=== PATIENT | female | born 1950 | race Caucasian/White ===

== ENCOUNTER 2016-12-26 19:31 | Emergency (ER) | payer MEDICAID ==
[~2016-12-26] VITALS: Ht 167.6 cm; Wt 55.0 kg
[~2016-12-26 19:31] MED LIST: FLUO40CA9 PO; ONDA4TAB10 PO; PANT40TA3 PO
[2016-12-26] MEDS ORDERED: MORPHINE SULFATE 4 MG/ML, 1ML ONE ×2 (20:10→20:30)
[2016-12-26] MEDS ORDERED: ONDANSETRON 2MG/ML, 2ML ONE (20:10)
[2016-12-26] MEDS: MORPHINE SULFATE 4 MG/ML, 1ML IVPush PRN ×2 (20:23→20:42)
[2016-12-26] MEDS ORDERED: DIPHENHYDRAMINE 50 MG/ML, 1ML ONE (20:30)
[2016-12-26] MEDS ORDERED: SODIUM CHLORIDE 0.9% 1,000ML IVBOLUS ONE (20:30)
[2016-12-26] MEDS ORDERED: ONDANSETRON 2MG/ML, 2ML IVPush ONE (20:30)
[2016-12-26 20:37] LABS: HEMOGLOBIN 11.5 g/dL (11.7-16.4)
[2016-12-26 20:41] LABS: ASPARTATE AMINO TRANSFERASE 10 U/L (15-37); BLOOD UREA NITROGEN 10 mg/dL (7-18)
[2016-12-26 20:46] LABS: IS PT STATUS REG ER OR PRE ER? YES
[2016-12-26 21:42] VITALS: BP 140/82
== END 2016-12-26 21:44 | disposition home or self-care (01) ==
LOC: ED 20:23
DX: K44.9 Diaphragmatic hernia without obstruction or gangrene (principal); E11.9 Type 2 diabetes mellitus without complications; K21.9 Gastro-esophageal reflux disease without esophagitis; I25.2 Old myocardial infarction
CPT/HCPCS: 36415; 71010; 80053; 83690; 84484; 85025; 93005; 96361; 96374; 96375; 99285; J2405; J7030

== ENCOUNTER 2017-01-26 09:47 | Inpatient (IN) | payer MEDICAID ==
[2017-01-18 13:42] VITALS: BP 136/88
[~2017-01-26] VITALS: Ht 167.6 cm; Wt 68.3 kg
[~2017-01-26 09:47] MED LIST changes: +ACET1TAB10 PO; +B-12 SL; +CEFAZOLIN 1,000 MG ONE; +DEXAMETHASONE 4 MG/ML, 1ML ONE; +EPHEDRINE 50 MG/ML, 1ML ONE; +ESMOLOL 100 MG/10 ML ONE; +FISH OIL PO; +GLYCOPYRROLATE 0.2MG/1ML ONE; +HYDROCODONE PO; +KETOROLAC 30 MG/1 ML ONE; +NEOSTIGMINE 1 MG/ML, 10ML ONE; +ONDANSETRON 2MG/ML, 2ML ONE; +OXYC10TA6 PO; +PHENYLEPHRINE 10 MG/ML ONE; +POTASSIUM PO; +PROPOFOL 10 MG/ML, 20ML ONE; +ROCURONIUM 10 MG/ML ONE; +SUCCINYLCHOLINE 20 MG/ML, 10ML ONE
[2017-01-26] MEDS ORDERED: PROM25SU34 RC (10:14)
[2017-01-26] MEDS ORDERED: SUCR1ORA2 PO (10:14)
[2017-01-26] MEDS ORDERED: LIDOCAINE 1%, 2ML SQ PRN (10:30)
[2017-01-26] MEDS ORDERED: BUPIVACAINE/PF-EPI 0.25% 1:200K ONE ×2 (10:50→11:32)
[2017-01-26] MEDS ORDERED: ONDANSETRON 2MG/ML, 2ML ONE (11:01)
[2017-01-26] MEDS: LACTATED RINGERS 1,000 ML IV SCH ×2 (11:03→18:00)
[2017-01-26] MEDS ORDERED: OXYC10TA6 PO (11:13)
[2017-01-26] MEDS ORDERED: ONDANSETRON 2MG/ML, 2ML IVPush ONE (11:30)
[2017-01-26] MEDS ORDERED: ACETAMINOPHEN 500 MG TABLET PO ONE (11:30)
[2017-01-26] MEDS ORDERED: HYDROmorphone 2 MG/ML, 1ML ONE ×2 (11:52→15:25)
[2017-01-26] MEDS ORDERED: FENTANYL PF 250 MCG/5ML ONE (11:52)
[2017-01-26] MEDS ORDERED: KETAMINE 10 MG/ML, 20ML ONE (11:52)
[2017-01-26] MEDS ORDERED: MIDAZOLAM 1 MG/ML, 2ML ONE (11:52)
[2017-01-26] MEDS ORDERED: THROMBIN 5,000 UNIT VIAL TP ONE (12:59)
[2017-01-26] MEDS ORDERED: LABETALOL 5MG/ML, 20ML IV PRN (13:00)
[2017-01-26] MEDS ORDERED: MEPERIDINE/PF 25MG/0.5ML IVPush PRN (13:00)
[2017-01-26] MEDS ORDERED: METOCLOPRAMIDE 5 MG/ML, 2ML IV PRN (13:00)
[2017-01-26] MEDS ORDERED: ACETAMINOPHEN 325 MG TABLET PO PRN (13:00)
[2017-01-26] MEDS ORDERED: HYDROmorphone 1 MG/ML, 1ML IV PRN (13:00)
[2017-01-26] MEDS ORDERED: hydrALAzine 20 MG/ML, 1ML IV PRN (13:00)
[2017-01-26] MEDS ORDERED: ONDANSETRON 2MG/ML, 2ML IVPush PRN (13:00)
[2017-01-26] MEDS ORDERED: MIDAZOLAM 1 MG/ML, 2ML IV PRN (13:00)
[2017-01-26] MEDS ORDERED: OXYcodone 5 MG/5 ML ORAL.SOL UDC PO PRN (13:00)
[2017-01-26] MEDS ORDERED: PROMETHAZINE 25 MG/ML, 1ML IV PRN (13:00)
[2017-01-26] MEDS ORDERED: ACETAMINOPHEN 650 MG/20.3 ML UDC ONE (15:25)
[2017-01-26] MEDS ORDERED: ACETAMINOPHEN 325 MG TABLET ONE (15:25)
[2017-01-26] MEDS ORDERED: FENTANYL PF 100 MCG/2ML ONE (15:25)
[2017-01-26] MEDS ORDERED: OXYcodone 5 MG/5 ML ORAL.SOL UDC ONE (15:26)
[2017-01-26] MEDS: FENTANYL PF 100 MCG/2ML IV PRN ×3 (15:31→15:57)
[2017-01-26] MEDS: INSULIN ASPART 100 UNITS/ML, PEN SQ-INSULIN SCH ×2 (16:00→21:24)
[2017-01-26] MEDS: HYDROcodone/APAP 7.5-325MG/15ML UDC PO PRN ×2 (17:29→21:59)
[2017-01-26] MEDS: HYDROmorphone 1 MG/ML, 1ML IV PRN ×6 (17:55→23:16)
[2017-01-26] MEDS: LABETALOL 5MG/ML, 20ML IVPush SCH (18:00)
[2017-01-26] MEDS: KETOROLAC 30 MG/1 ML IV PRN (19:31)
[2017-01-26 20:04] VITALS: BP 119/72
[2017-01-26] MEDS: ONDANSETRON 2MG/ML, 2ML IVPush PRN (20:21)
[2017-01-26] MEDS: POTASSIUM CHLORIDE 20 MEQ in D5%-0.45% NACL 1,000 ML IV SCH (20:47)
[2017-01-27 00:07] VITALS: BP 106/68
[2017-01-27] MEDS: LABETALOL 5MG/ML, 20ML IVPush SCH ×3 (00:51→18:00)
[2017-01-27] MEDS: HYDROmorphone 1 MG/ML, 1ML IV PRN ×13 (01:14→19:58)
[2017-01-27] MEDS: HYDROcodone/APAP 7.5-325MG/15ML UDC PO PRN ×3 (02:15→09:44)
[2017-01-27 04:27] VITALS: BP 101/63
[2017-01-27] MEDS: KETOROLAC 30 MG/1 ML IV PRN ×3 (04:43→20:19)
[2017-01-27 06:33] LABS: BLOOD UREA NITROGEN 13 mg/dL (7-18)
[2017-01-27 08:00] VITALS: BP 93/59
[2017-01-27] MEDS: ENOXAPARIN 40 MG/0.4 ML SQ SCH (08:19)
[2017-01-27] MEDS: POTASSIUM CHLORIDE 20 MEQ in D5%-0.45% NACL 1,000 ML IV SCH ×2 (09:44→23:02)
[2017-01-27] MEDS: ONDANSETRON 2MG/ML, 2ML IVPush PRN (11:05)
[2017-01-27] MEDS ORDERED: OMNIPAQUE 350 MG/ML, 150 ML BOTTLE ONE (11:50)
[2017-01-27] MEDS: INSULIN ASPART 100 UNITS/ML, PEN SQ-INSULIN SCH ×2 (11:55→21:59)
[2017-01-27 14:00] VITALS: BP 88/49
[2017-01-27] MEDS ORDERED: SODIUM CHLORIDE 0.9%, 500ML IVBOLUS ONE (15:30)
[2017-01-27] MEDS ORDERED: BUPIVACAINE/PF-EPI 0.25% 1:200K ONE (16:32)
[2017-01-27] MEDS ORDERED: SUCCINYLCHOLINE 20 MG/ML, 10ML ONE (17:27)
[2017-01-27] MEDS ORDERED: CEFAZOLIN 1,000 MG ONE (17:27)
[2017-01-27] MEDS ORDERED: PHENYLEPHRINE 10 MG/ML ONE (17:27)
[2017-01-27] MEDS ORDERED: VASOPRESSIN 20 UNIT/ML, 1ML ONE (17:27)
[2017-01-27] MEDS ORDERED: NEOSTIGMINE 1 MG/ML, 10ML ONE (17:27)
[2017-01-27] MEDS ORDERED: GLYCOPYRROLATE 0.2MG/1ML ONE (17:27)
[2017-01-27] MEDS ORDERED: ONDANSETRON 2MG/ML, 2ML ONE (17:27)
[2017-01-27] MEDS ORDERED: PROPOFOL 10 MG/ML, 20ML ONE ×2 (17:27)
[2017-01-27] MEDS ORDERED: ROCURONIUM 10 MG/ML ONE (17:27)
[2017-01-27] MEDS ORDERED: FENTANYL PF 250 MCG/5ML ONE (17:29)
[2017-01-27] MEDS ORDERED: MIDAZOLAM 1 MG/ML, 2ML ONE (17:29)
[2017-01-27] MEDS ORDERED: OXYcodone 5 MG/5 ML ORAL.SOL UDC PO PRN (19:00)
[2017-01-27] MEDS ORDERED: HYDROcodone/APAP 7.5-325MG/15ML UDC PO PRN (19:00)
[2017-01-27] MEDS ORDERED: PROMETHAZINE 25 MG/ML, 1ML IV PRN (19:00)
[2017-01-27] MEDS ORDERED: MEPERIDINE/PF 25MG/0.5ML IVPush PRN (19:00)
[2017-01-27] MEDS ORDERED: ONDANSETRON 2MG/ML, 2ML IVPush PRN (19:00)
[2017-01-27] MEDS ORDERED: MIDAZOLAM 1 MG/ML, 2ML IV PRN (19:00)
[2017-01-27] MEDS ORDERED: ACETAMINOPHEN 325 MG TABLET PO PRN (19:00)
[2017-01-27] MEDS ORDERED: FENTANYL PF 100 MCG/2ML ONE ×2 (19:22→19:37)
[2017-01-27] MEDS ORDERED: HYDROmorphone 2 MG/ML, 1ML ONE (19:22)
[2017-01-27] MEDS ORDERED: OXYcodone 5 MG/5 ML ORAL.SOL UDC ONE (19:23)
[2017-01-27] MEDS: FENTANYL PF 100 MCG/2ML IV PRN ×4 (19:25→19:50)
[2017-01-27] MEDS ORDERED: HYDROmorphone PCA 30 MG/30 ML IV PRN (19:30)
[2017-01-27] MEDS ORDERED: MEPERIDINE/PF 25MG/0.5ML ONE (19:37)
[2017-01-27] MEDS ORDERED: HYDROmorphone PCA 30 MG/30 ML ONE (19:37)
[2017-01-27] MEDS ORDERED: KETOROLAC 30 MG/1 ML ONE (20:18)
[2017-01-27 21:12] VITALS: BP 92/64
[2017-01-27] MEDS: CEFOTETAN PMX 1GM/50ML 50 ML IV SCH (21:35)
[2017-01-27] MEDS: FLUCONAZOLE 200 MG/100 ML 100 ML IV SCH ×2 (21:35→23:03)
[2017-01-27] MEDS: DIPHENHYDRAMINE 50 MG/ML, 1ML IV PRN ×2 (21:50→23:18)
[2017-01-28 00:24] VITALS: BP 97/64
[2017-01-28] MEDS: LABETALOL 5MG/ML, 20ML IVPush SCH ×3 (02:00→17:41)
[2017-01-28 03:56] VITALS: BP 98/65
[2017-01-28] MEDS: INSULIN ASPART 100 UNITS/ML, PEN SQ-INSULIN SCH ×4 (04:00→22:11)
[2017-01-28 05:10] LABS: BLOOD UREA NITROGEN 17 mg/dL (7-18)
[2017-01-28 05:22] LABS: DIFF TOTAL CELLS COUNTED 100 CELL DIFF
[2017-01-28 05:24] LABS: ANISOCYTOSIS 1+; HYPOCHROMIA 1+; OVALOCYTES 1+; TARGET CELLS 1+; VERIFY COUNTS? YES
[2017-01-28 05:26] LABS: LARGE PLATELETS 1+
[2017-01-28] MEDS ORDERED: SODIUM CHLORIDE 0.9%, 250ML IVBOLUS ONE (07:00)
[2017-01-28] MEDS: KETOROLAC 30 MG/1 ML IV PRN ×3 (08:05→20:26)
[2017-01-28] MEDS: CEFOTETAN PMX 1GM/50ML 50 ML IV SCH ×2 (08:05→19:57)
[2017-01-28] MEDS: HYDROmorphone 1 MG/ML, 1ML IV PRN (08:56)
[2017-01-28] MEDS ORDERED: HYDROmorphone PCA 30 MG/30 ML IV PRN (09:00)
[2017-01-28 09:55] VITALS: BP 96/51
[2017-01-28] MEDS: ENOXAPARIN 40 MG/0.4 ML SQ SCH (10:19)
[2017-01-28] MEDS: POTASSIUM CHLORIDE 20 MEQ in D5%-0.45% NACL 1,000 ML IV SCH ×2 (10:19→18:30)
[2017-01-28 15:55] VITALS: BP 102/64
[2017-01-28] MEDS ORDERED: LACTATED RINGERS 500 ML IVBOLUS ONE (18:00)
[2017-01-28 18:34] VITALS: BP 118/71
[2017-01-28] MEDS: ONDANSETRON 2MG/ML, 2ML IVPush PRN (19:56)
[2017-01-28] MEDS: DIPHENHYDRAMINE 50 MG/ML, 1ML IV PRN ×2 (20:30→22:11)
[2017-01-28] MEDS: HYDROmorphone PCA 30 MG/30 ML IV PRN (21:26)
[2017-01-28] MEDS: FLUCONAZOLE 200 MG/100 ML 100 ML IV SCH (22:11)
[2017-01-29 01:08] VITALS: BP 117/71
[2017-01-29 02:19] LABS: ASPARTATE AMINO TRANSFERASE 27 U/L (15-37); BLOOD UREA NITROGEN 13 mg/dL (7-18)
[2017-01-29] MEDS: KETOROLAC 30 MG/1 ML IV PRN ×4 (02:37→22:33)
[2017-01-29] MEDS: LABETALOL 20 MG/4 ML IVPush SCH ×3 (02:38→17:03)
[2017-01-29 03:05] LABS: DIFF TOTAL CELLS COUNTED 100 CELL DIFF
[2017-01-29 03:08] LABS: ANISOCYTOSIS 1+; VERIFY COUNTS? YES
[2017-01-29 03:09] LABS: HYPOCHROMIA 1+; OVALOCYTES 1+; POLYCHROMASIA 1+; TARGET CELLS 1+
[2017-01-29 03:10] LABS: LARGE PLATELETS 1+
[2017-01-29] MEDS: INSULIN ASPART 100 UNITS/ML, PEN SQ-INSULIN SCH ×4 (04:55→22:00)
[2017-01-29] MEDS: POTASSIUM CHLORIDE 20 MEQ in D5%-0.45% NACL 1,000 ML IV SCH ×3 (04:56→19:10)
[2017-01-29] MEDS ORDERED: LACTATED RINGERS 1,000 ML IVBOLUS ONE (05:00)
[2017-01-29 06:36] VITALS: BP 95/61
[2017-01-29] MEDS: CEFOTETAN PMX 1GM/50ML 50 ML IV SCH ×2 (07:20→19:36)
[2017-01-29] MEDS: ENOXAPARIN 40 MG/0.4 ML SQ SCH (08:56)
[2017-01-29] MEDS: ONDANSETRON 2MG/ML, 2ML IVPush PRN ×2 (09:42→23:44)
[2017-01-29] MEDS: DIPHENHYDRAMINE 50 MG/ML, 1ML IV PRN ×3 (11:01→20:18)
[2017-01-29 11:05] VITALS: BP 97/62
[2017-01-29 14:00] VITALS: BP 107/65
[2017-01-29] MEDS: NICOTINE 14MG/24 HR PATCH.TD24 TD SCH (15:17)
[2017-01-29] MEDS ORDERED: LACTATED RINGERS 500 ML IVBOLUS ONE (17:00)
[2017-01-29 18:41] VITALS: BP 102/68
[2017-01-29] MEDS: FLUCONAZOLE 200 MG/100 ML 100 ML IV SCH (21:54)
[2017-01-29] MEDS: HYDROmorphone PCA 30 MG/30 ML IV PRN (21:56)
[2017-01-30 01:45] VITALS: BP 90/55
[2017-01-30] MEDS: LABETALOL 20 MG/4 ML IVPush SCH ×3 (02:30→18:28)
[2017-01-30] MEDS: POTASSIUM CHLORIDE 20 MEQ in D5%-0.45% NACL 1,000 ML IV SCH ×3 (03:15→20:32)
[2017-01-30] MEDS: INSULIN ASPART 100 UNITS/ML, PEN SQ-INSULIN SCH ×4 (04:00→21:48)
[2017-01-30 06:35] LABS: BLOOD UREA NITROGEN 8 mg/dL (7-18)
[2017-01-30 07:38] VITALS: BP 116/70
[2017-01-30] MEDS: ENOXAPARIN 40 MG/0.4 ML SQ SCH (08:27)
[2017-01-30] MEDS: CEFOTETAN PMX 1GM/50ML 50 ML IV SCH ×2 (08:28→19:41)
[2017-01-30] MEDS: KETOROLAC 30 MG/1 ML IV PRN (10:13)
[2017-01-30] MEDS: ONDANSETRON 2MG/ML, 2ML IVPush PRN (10:13)
[2017-01-30 11:59] VITALS: BP 96/61
[2017-01-30] MEDS: DIPHENHYDRAMINE 50 MG/ML, 1ML IV PRN ×2 (12:01→22:03)
[2017-01-30 12:36] VITALS: BP 100/64
[2017-01-30] MEDS: NICOTINE 14MG/24 HR PATCH.TD24 TD SCH (16:12)
[2017-01-30] MEDS ORDERED: LACTATED RINGERS 500 ML IVBOLUS ONE (16:30)
[2017-01-30 18:29] VITALS: BP 95/62
[2017-01-30 21:27] VITALS: BP 113/69
[2017-01-30] MEDS: FLUCONAZOLE 200 MG/100 ML 100 ML IV SCH (22:03)
[2017-01-31] MEDS: HYDROmorphone PCA 30 MG/30 ML IV PRN (01:36)
[2017-01-31] MEDS: ONDANSETRON 2MG/ML, 2ML IVPush PRN ×2 (01:40→10:06)
[2017-01-31 02:30] VITALS: BP 96/62
[2017-01-31] MEDS: LABETALOL 20 MG/4 ML IVPush SCH ×3 (02:30→11:11)
[2017-01-31] MEDS: INSULIN ASPART 100 UNITS/ML, PEN SQ-INSULIN SCH ×4 (04:00→20:58)
[2017-01-31] MEDS: POTASSIUM CHLORIDE 20 MEQ in D5%-0.45% NACL 1,000 ML IV SCH ×3 (04:01→23:31)
[2017-01-31 06:55] VITALS: BP 90/63
[2017-01-31 06:59] LABS: DIFF TOTAL CELLS COUNTED 100 CELL DIFF
[2017-01-31 07:01] LABS: ANISOCYTOSIS 1+; VERIFY COUNTS? YES
[2017-01-31 07:02] LABS: POLYCHROMASIA 1+
[2017-01-31] MEDS: DIPHENHYDRAMINE 50 MG/ML, 1ML IV PRN ×3 (07:46→20:55)
[2017-01-31] MEDS: ENOXAPARIN 40 MG/0.4 ML SQ SCH (09:09)
[2017-01-31] MEDS: CEFOTETAN PMX 1GM/50ML 50 ML IV SCH ×2 (09:10→19:49)
[2017-01-31] MEDS ORDERED: HYDROcodone/APAP 7.5-325MG/15ML UDC PO PRN ×2 (10:30→13:00)
[2017-01-31] MEDS: HYDROcodone/APAP 7.5-325MG/15ML UDC PO PRN (11:52)
[2017-01-31 14:15] VITALS: BP 98/62
[2017-01-31] MEDS: NICOTINE 14MG/24 HR PATCH.TD24 TD SCH (15:06)
[2017-01-31 19:55] VITALS: BP 130/78
[2017-01-31] MEDS: FLUCONAZOLE 200 MG/100 ML 100 ML IV SCH (21:50)
[2017-02-01 01:29] VITALS: BP 105/69
[2017-02-01] MEDS: LABETALOL 20 MG/4 ML IVPush SCH (01:37)
[2017-02-01] MEDS: ONDANSETRON 2MG/ML, 2ML IVPush PRN ×2 (02:11→13:16)
[2017-02-01] MEDS: INSULIN ASPART 100 UNITS/ML, PEN SQ-INSULIN SCH ×4 (04:00→22:03)
[2017-02-01] MEDS: DIPHENHYDRAMINE 50 MG/ML, 1ML IV PRN ×3 (05:04→20:15)
[2017-02-01 05:42] LABS: BLOOD UREA NITROGEN 6 mg/dL (7-18)
[2017-02-01] MEDS ORDERED: LABETALOL 5MG/ML, 20ML IVPush SCH ×2 (06:00→06:58)
[2017-02-01 06:34] LABS: DIFF TOTAL CELLS COUNTED 100 CELL DIFF
[2017-02-01 06:36] LABS: ANISOCYTOSIS 1+; OVALOCYTES 1+; POIKILOCYTOSIS 1+; POLYCHROMASIA 1+
[2017-02-01 06:37] LABS: LARGE PLATELETS 1+; TARGET CELLS 1+
[2017-02-01 06:39] LABS: HYPOCHROMIA 1+; VERIFY COUNTS? YES
[2017-02-01 07:21] VITALS: BP 121/80
[2017-02-01] MEDS: HYDROmorphone PCA 30 MG/30 ML IV PRN ×2 (07:47→08:02)
[2017-02-01] MEDS ORDERED: ACETAMINOPHEN 500 MG TABLET PO PRN (08:00)
[2017-02-01] MEDS: CEFOTETAN PMX 1GM/50ML 50 ML IV SCH ×2 (08:20→20:15)
[2017-02-01] MEDS: OXYcodone IR 5MG TABLET PO PRN ×5 (08:40→22:26)
[2017-02-01] MEDS ORDERED: LABETALOL 20 MG/4 ML IVPush PRN (09:30)
[2017-02-01] MEDS: ENOXAPARIN 40 MG/0.4 ML SQ SCH (09:48)
[2017-02-01] MEDS: NICOTINE 14MG/24 HR PATCH.TD24 TD SCH (13:14)
[2017-02-01 15:03] VITALS: BP 125/75
[2017-02-01] MEDS ORDERED: POTASSIUM CHLORIDE 20 MEQ in D5%-0.45% NACL 1,000 ML IV SCH (15:15)
[2017-02-01 19:38] VITALS: BP 115/78
[2017-02-01] MEDS: FLUCONAZOLE 200 MG/100 ML 100 ML IV SCH (22:29)
[2017-02-02 01:33] VITALS: BP 112/70
[2017-02-02] MEDS: OXYcodone IR 5MG TABLET PO PRN ×2 (02:54→08:25)
[2017-02-02] MEDS: INSULIN ASPART 100 UNITS/ML, PEN SQ-INSULIN SCH ×4 (04:47→21:00)
[2017-02-02] MEDS: DIPHENHYDRAMINE 50 MG/ML, 1ML IV PRN (05:50)
[2017-02-02 06:31] VITALS: BP 103/65
[2017-02-02] MEDS ORDERED: HYDROmorphone PCA 30 MG/30 ML IV PRN (08:00)
[2017-02-02] MEDS: ENOXAPARIN 40 MG/0.4 ML SQ SCH (08:25)
[2017-02-02] MEDS: CEFOTETAN PMX 1GM/50ML 50 ML IV SCH ×2 (08:25→21:40)
[2017-02-02] MEDS ORDERED: FENTANYL PF 250 MCG/5ML ONE (12:36)
[2017-02-02] MEDS ORDERED: MIDAZOLAM 1 MG/ML, 2ML ONE (12:37)
[2017-02-02] MEDS ORDERED: BUPIVACAINE/PF-EPI 0.25% 1:200K ONE (12:47)
[2017-02-02] MEDS ORDERED: BUPIVACAINE/PF-EPI 0.25% 1:200K INFIL ONE (13:00)
[2017-02-02] MEDS ORDERED: METOCLOPRAMIDE 5 MG/ML, 2ML IV PRN (13:30)
[2017-02-02] MEDS ORDERED: OXYcodone 5 MG/5 ML ORAL.SOL UDC PO PRN (13:30)
[2017-02-02] MEDS ORDERED: LABETALOL 5MG/ML, 20ML IV PRN (13:30)
[2017-02-02] MEDS ORDERED: HYDROmorphone 1 MG/ML, 1ML IV PRN (13:30)
[2017-02-02] MEDS ORDERED: hydrALAzine 20 MG/ML, 1ML IV PRN (13:30)
[2017-02-02] MEDS ORDERED: MEPERIDINE/PF 25MG/0.5ML IVPush PRN (13:30)
[2017-02-02] MEDS ORDERED: ALBUTEROL SULFATE 2.5 MG/3 ML NPPB PRN (13:30)
[2017-02-02] MEDS ORDERED: ONDANSETRON 2MG/ML, 2ML IVPush PRN (13:30)
[2017-02-02] MEDS ORDERED: ALBUTEROL SULFATE 2.5 MG/3 ML ONE (14:46)
[2017-02-02] MEDS ORDERED: FENTANYL PF 100 MCG/2ML ONE ×2 (15:24→16:00)
[2017-02-02] MEDS: FENTANYL PF 100 MCG/2ML IV PRN ×4 (15:25→16:20)
[2017-02-02] MEDS ORDERED: NEOSTIGMINE 1 MG/ML, 10ML ONE (15:27)
[2017-02-02] MEDS ORDERED: ONDANSETRON 2MG/ML, 2ML ONE (15:27)
[2017-02-02] MEDS ORDERED: PHENYLEPHRINE 10 MG/ML ONE (15:27)
[2017-02-02] MEDS ORDERED: GLYCOPYRROLATE 0.2MG/1ML ONE (15:27)
[2017-02-02] MEDS ORDERED: PROPOFOL 10 MG/ML, 20ML ONE (15:27)
[2017-02-02] MEDS ORDERED: ROCURONIUM 10 MG/ML ONE (15:27)
[2017-02-02] MEDS: HYDROmorphone PCA 30 MG/30 ML IV PRN (15:30)
[2017-02-02 19:15] VITALS: BP 122/81
[2017-02-02] MEDS: NICOTINE 14MG/24 HR PATCH.TD24 TD SCH (21:45)
[2017-02-02] MEDS: FLUCONAZOLE 200 MG/100 ML 100 ML IV SCH (22:31)
[2017-02-02] MEDS: POTASSIUM CHLORIDE 20 MEQ in D5%-0.45% NACL 1,000 ML IV SCH (22:31)
[2017-02-02 23:19] VITALS: BP 117/75
[2017-02-03 03:33] VITALS: BP 119/77
[2017-02-03] MEDS: POTASSIUM CHLORIDE 20 MEQ in D5%-0.45% NACL 1,000 ML IV SCH ×4 (03:35→22:25)
[2017-02-03] MEDS: ONDANSETRON 2MG/ML, 2ML IVPush PRN (04:50)
[2017-02-03] MEDS: HYDROmorphone PCA 30 MG/30 ML IV PRN (05:35)
[2017-02-03 06:55] VITALS: BP 123/80
[2017-02-03 07:40] LABS: BLOOD UREA NITROGEN 2 mg/dL (7-18)
[2017-02-03] MEDS: INSULIN ASPART 100 UNITS/ML, PEN SQ-INSULIN SCH ×4 (07:44→21:00)
[2017-02-03] MEDS: CEFOTETAN PMX 1GM/50ML 50 ML IV SCH ×2 (08:17→19:53)
[2017-02-03] MEDS: ENOXAPARIN 40 MG/0.4 ML SQ SCH (08:17)
[2017-02-03] MEDS: DIPHENHYDRAMINE 50 MG/ML, 1ML IV PRN ×2 (12:41→21:29)
[2017-02-03 13:01] VITALS: BP 118/78
[2017-02-03] MEDS ORDERED: HYDROmorphone PCA 30 MG/30 ML IV PRN (18:00)
[2017-02-03 18:44] VITALS: BP 156/94
[2017-02-03] MEDS ORDERED: OXYcodone 5 MG/5 ML ORAL.SOL UDC ONE (19:51)
[2017-02-03] MEDS: OXYcodone ORAL.CONC 20 MG/ML PO PRN (19:54)
[2017-02-03] MEDS: NICOTINE 14MG/24 HR PATCH.TD24 TD SCH (21:28)
[2017-02-03] MEDS: FLUCONAZOLE 200 MG/100 ML 100 ML IV SCH (21:28)
[2017-02-04] MEDS ORDERED: OXYcodone IR 5MG TABLET ONE (00:22)
[2017-02-04] MEDS: OXYcodone ORAL.CONC 20 MG/ML PO PRN ×6 (00:23→21:26)
[2017-02-04 00:36] VITALS: BP 143/92
[2017-02-04 05:21] LABS: BLOOD UREA NITROGEN 2 mg/dL (7-18)
[2017-02-04] MEDS: INSULIN ASPART 100 UNITS/ML, PEN SQ-INSULIN SCH ×4 (07:00→21:00)
[2017-02-04 07:15] VITALS: BP 137/82
[2017-02-04] MEDS ORDERED: MAGNESIUM HYDROXIDE 8%, 30ML UDC PO PRN (07:30)
[2017-02-04] MEDS: CEFOTETAN PMX 1GM/50ML 50 ML IV SCH ×2 (08:14→19:34)
[2017-02-04] MEDS: DOCUSATE 100 MG CAPSULE PO SCH ×2 (08:25→19:34)
[2017-02-04] MEDS: ENOXAPARIN 40 MG/0.4 ML SQ SCH (08:25)
[2017-02-04] MEDS: DIPHENHYDRAMINE 25 MG CAPSULE PO PRN (12:11)
[2017-02-04] MEDS: ONDANSETRON 2MG/ML, 2ML IVPush PRN ×2 (12:16→19:54)
[2017-02-04 13:37] VITALS: BP 111/69
[2017-02-04] MEDS: HYDROmorphone 1 MG/ML, 1ML IV PRN ×3 (18:45→22:19)
[2017-02-04 19:36] VITALS: BP 138/86
[2017-02-04] MEDS: NICOTINE 14MG/24 HR PATCH.TD24 TD SCH (21:08)
[2017-02-04] MEDS: FLUCONAZOLE 200 MG/100 ML 100 ML IV SCH (21:26)
[2017-02-05] MEDS: HYDROmorphone 1 MG/ML, 1ML IV PRN ×11 (00:15→22:50)
[2017-02-05 02:25] VITALS: BP 119/76
[2017-02-05] MEDS: OXYcodone ORAL.CONC 20 MG/ML PO PRN ×2 (03:54→08:31)
[2017-02-05] MEDS: INSULIN ASPART 100 UNITS/ML, PEN SQ-INSULIN SCH ×4 (07:41→21:00)
[2017-02-05 08:06] VITALS: BP 119/78
[2017-02-05] MEDS: DOCUSATE 100 MG CAPSULE PO SCH ×2 (08:32→20:59)
[2017-02-05] MEDS: ENOXAPARIN 40 MG/0.4 ML SQ SCH (08:32)
[2017-02-05] MEDS: CEFOTETAN PMX 1GM/50ML 50 ML IV SCH ×2 (08:32→19:51)
[2017-02-05] MEDS ORDERED: HYDROmorphone 2 MG/ML, 1ML ONE (11:29)
[2017-02-05] MEDS: OXYcodone IR 5MG TABLET PO PRN ×3 (12:47→21:25)
[2017-02-05 15:04] VITALS: BP 122/78
[2017-02-05] MEDS: ONDANSETRON 2MG/ML, 2ML IVPush PRN (18:22)
[2017-02-05 19:49] VITALS: BP 127/68
[2017-02-05] MEDS: NICOTINE 14MG/24 HR PATCH.TD24 TD SCH (21:00)
[2017-02-05] MEDS: FLUCONAZOLE 200 MG/100 ML 100 ML IV SCH (21:25)
[2017-02-05] MEDS: DIPHENHYDRAMINE 25 MG CAPSULE PO PRN (22:20)
[2017-02-06] MEDS: OXYcodone IR 5MG TABLET PO PRN ×4 (01:28→13:48)
[2017-02-06 01:59] VITALS: BP 120/75
[2017-02-06 05:43] LABS: BLOOD UREA NITROGEN 4 mg/dL (7-18)
[2017-02-06 06:54] VITALS: BP 118/57
[2017-02-06] MEDS: INSULIN ASPART 100 UNITS/ML, PEN SQ-INSULIN SCH ×3 (07:28→16:28)
[2017-02-06] MEDS: CEFOTETAN PMX 1GM/50ML 50 ML IV SCH (07:33)
[2017-02-06] MEDS: ENOXAPARIN 40 MG/0.4 ML SQ SCH (07:33)
[2017-02-06] MEDS: DOCUSATE 100 MG CAPSULE PO SCH (07:33)
[2017-02-06] MEDS: HYDROmorphone 1 MG/ML, 1ML IV PRN ×3 (07:33→14:19)
[2017-02-06] MEDS: ONDANSETRON 2MG/ML, 2ML IVPush PRN ×2 (07:46→15:42)
[2017-02-06 13:33] VITALS: BP 134/77
[2017-02-06] MEDS ORDERED: ONDA4TAB10 PO (14:18)
[2017-02-06] MEDS ORDERED: OXYC20TA2 PO (14:18)
== END 2017-02-06 16:35 | disposition home or self-care (01) | DRG 327 ==
LOC: OUT 09:47 → ORIP 15:15 → 4NOR 17:14
PROVIDERS: ADMIT Surgery; ATTEND Surgery
PROC: 8E0W4CZ Robotic Assisted Procedure of Trunk Region, Percutaneous Endoscopic Approach (ICD-10-PCS; 2017-01-26)
PROC: 0DH64UZ Insertion of Feeding Device into Stomach, Percutaneous Endoscopic Approach (ICD-10-PCS; 2017-01-26)
PROC: 0BUS4JZ (ICD-10-PCS; principal; 2017-01-26 12:00)
PROC: 0BUR4JZ (ICD-10-PCS; 2017-01-26 12:00)
PROC: 3E1M38Z Irrigation of Peritoneal Cavity using Irrigating Substance, Percutaneous Approach (ICD-10-PCS; 2017-01-27)
PROC: 0D20XUZ Change Feeding Device in Upper Intestinal Tract, External Approach (ICD-10-PCS; 2017-01-27)
PROC: 02HV33Z Insertion of Infusion Device into Superior Vena Cava, Percutaneous Approach (ICD-10-PCS; 2017-01-28)
PROC: B5181ZA Fluoroscopy of Superior Vena Cava using Low Osmolar Contrast, Guidance (ICD-10-PCS; 2017-01-28)
PROC: B548ZZA Ultrasonography of Superior Vena Cava, Guidance (ICD-10-PCS; 2017-01-28)
PROC: 0DQ60ZZ Repair Stomach, Open Approach (ICD-10-PCS; 2017-02-02)
DX: K44.9 Diaphragmatic hernia without obstruction or gangrene (principal); F11.20 Opioid dependence, uncomplicated; K94.23 Gastrostomy malfunction; J44.9 Chronic obstructive pulmonary disease, unspecified; E11.9 Type 2 diabetes mellitus without complications; D72.825 Bandemia; F17.200 Nicotine dependence, unspecified, uncomplicated; Y83.3 Surgical operation with formation of external stoma as the cause of abnormal reaction of the patient, or of later complication, without mention of misadventure at the time of the procedure; I10 Essential (primary) hypertension; I25.10 Atherosclerotic heart disease of native coronary artery without angina pectoris; Z88.8 Allergy status to other drugs, medicaments and biological substances; Z79.899 Other long term (current) drug therapy; I25.2 Old myocardial infarction
CPT/HCPCS: 36415; 36569; 71010; 74241; 76937; 77001; 80048; 80053; 82040; 82962; 85025; 94640; B4087; J0690; J1100; J1170; J1650; J1815; J1885; J2175; J2250; J2405; J2704; J2710; J3010; J3480; J3490; J7120; Q9967; C1751; J0330; J1200; J1450; J2370; J7040; J7050; Q0163; Q4116; S0074

== ENCOUNTER 2017-02-08 07:28 | Emergency (ER) | payer MEDICAID ==
[~2017-02-08] VITALS: Ht 167.6 cm; Wt 64.6 kg
[~2017-02-08 07:28] MED LIST changes: -CEFAZOLIN 1,000 MG ONE; -DEXAMETHASONE 4 MG/ML, 1ML ONE; -EPHEDRINE 50 MG/ML, 1ML ONE; -ESMOLOL 100 MG/10 ML ONE; -GLYCOPYRROLATE 0.2MG/1ML ONE; -KETOROLAC 30 MG/1 ML ONE; -NEOSTIGMINE 1 MG/ML, 10ML ONE; -ONDANSETRON 2MG/ML, 2ML ONE; +OXYC20TA2 PO; -PHENYLEPHRINE 10 MG/ML ONE; +PROM25SU34 RC; -PROPOFOL 10 MG/ML, 20ML ONE; -ROCURONIUM 10 MG/ML ONE; -SUCCINYLCHOLINE 20 MG/ML, 10ML ONE; +SUCR1ORA2 PO
[2017-02-08] MEDS ORDERED: SODIUM CHLORIDE 0.9% 1,000 ML IV ONE (07:42)
[2017-02-08] MEDS ORDERED: SODIUM CHLORIDE FLUSH 10ML SYR IVF ONE (08:00)
[2017-02-08] MEDS ORDERED: SODIUM CHLORIDE 0.9% 1,000ML IVBOLUS ONE (08:00)
[2017-02-08] MEDS ORDERED: ONDANSETRON 2MG/ML, 2ML IVPush ONE (08:00)
[2017-02-08] MEDS ORDERED: ONDANSETRON 2MG/ML, 2ML ONE (08:05)
[2017-02-08] MEDS ORDERED: HYDROmorphone 1 MG/ML, 1ML ONE ×2 (08:05→12:16)
[2017-02-08] MEDS: HYDROmorphone 1 MG/ML, 1ML IVPush PRN ×2 (08:08→08:28)
[2017-02-08 08:40] LABS: ASPARTATE AMINO TRANSFERASE 24 U/L (15-37); BLOOD UREA NITROGEN 9 mg/dL (7-18)
[2017-02-08 09:37] LABS: DIFF TOTAL CELLS COUNTED 100 CELL DIFF
[2017-02-08 09:41] LABS: VERIFY COUNTS? YES
[2017-02-08 10:42] VITALS: BP 140/78
[2017-02-08] MEDS ORDERED: FUROSEMIDE 20 MG/2 ML IV ONE (12:00)
[2017-02-08] MEDS ORDERED: HYDROmorphone 1 MG/ML, 1ML IV ONE (12:30)
== END 2017-02-08 13:36 | disposition home or self-care (01) ==
LOC: ED 09:14
DX: R10.84 Generalized abdominal pain (principal); G89.29 Other chronic pain; J44.9 Chronic obstructive pulmonary disease, unspecified; J81.1 Chronic pulmonary edema
CPT/HCPCS: 36415; 74022; 80053; 81003; 83605; 83690; 83880; 84145; 85025; 87040; 93005; 96361; 96374; 96375; 99285; J1170; J2405; J7030

== ENCOUNTER 2017-02-21 08:38 | Emergency (ER) | payer MEDICAID ==
[~2017-02-21] VITALS: Ht 165.1 cm; Wt 55.5 kg
[2017-02-21] MEDS ORDERED: METF500T27 PO (09:39)
[2017-02-21] MEDS ORDERED: ONDANSETRON 2MG/ML, 2ML ONE (09:43)
[2017-02-21] MEDS ORDERED: HYDROmorphone 1 MG/ML, 1ML ONE ×2 (09:43→10:04)
[2017-02-21] MEDS: HYDROmorphone 1 MG/ML, 1ML IVPush PRN ×2 (09:47→10:07)
[2017-02-21] MEDS ORDERED: SODIUM CHLORIDE FLUSH 10ML SYR IVF ONE (10:00)
[2017-02-21] MEDS ORDERED: ONDANSETRON 2MG/ML, 2ML IVPush ONE (10:00)
[2017-02-21 10:10] LABS: DIFF TOTAL CELLS COUNTED 100 CELL DIFF
[2017-02-21 10:18] LABS: ASPARTATE AMINO TRANSFERASE 11 U/L (15-37); BLOOD UREA NITROGEN 7 mg/dL (7-18)
[2017-02-21 10:25] LABS: ANISOCYTOSIS 1+; HYPOCHROMIA 1+; MICROCYTOSIS 1+; VERIFY COUNTS? YES
[2017-02-21 10:26] LABS: OVALOCYTES 1+; TARGET CELLS 1+
[2017-02-21] MEDS ORDERED: OMNIPAQUE 350 MG/ML, 100ML BOTTLE ONE (10:49)
[2017-02-21] MEDS ORDERED: LORazepam 2 MG/ML, 1ML ONE (10:49)
[2017-02-21 10:52] VITALS: BP 153/86
[2017-02-21] MEDS ORDERED: LORazepam 2 MG/ML, 1ML IVPush ONE (11:00)
[2017-02-21] MEDS ORDERED: OXYcodone IR 5MG TABLET ONE (11:35)
[2017-02-21] MEDS ORDERED: OXYcodone IR 5MG TABLET PO ONE (12:00)
== END 2017-02-21 11:56 | disposition home or self-care (01) ==
LOC: ED 09:59
DX: K91.870 Postprocedural hematoma of a digestive system organ or structure following a digestive system procedure (principal); E11.9 Type 2 diabetes mellitus without complications; J44.9 Chronic obstructive pulmonary disease, unspecified; I25.2 Old myocardial infarction; Z90.710 Acquired absence of both cervix and uterus; Z87.891 Personal history of nicotine dependence
CPT/HCPCS: 36415; 74022; 74177; 80053; 83690; 85025; 85610; 85730; 93005; 96374; 96375; 99285; J1170; J2060; J2405; Q9967

== ENCOUNTER 2017-03-02 13:28 | Emergency (ER) | payer MEDICAID ==
[~2017-03-02] VITALS: Ht 167.6 cm; Wt 53.6 kg
[~2017-03-02 13:28] MED LIST changes: +METF500T27 PO
[2017-03-02] MEDS ORDERED: ONDANSETRON ODT 4 MG ONE (14:08)
[2017-03-02] MEDS ORDERED: SODIUM CHLORIDE 0.9% 1,000ML IVBOLUS ONE (14:30)
[2017-03-02] MEDS ORDERED: SODIUM CHLORIDE FLUSH 10ML SYR IVF ONE (14:30)
[2017-03-02] MEDS ORDERED: ONDANSETRON ODT 8 MG PO PRN (14:30)
[2017-03-02 14:47] LABS: ASPARTATE AMINO TRANSFERASE 7 U/L (15-37); BLOOD UREA NITROGEN 14 mg/dL (7-18)
[2017-03-02] MEDS ORDERED: DIPHENHYDRAMINE 50 MG/ML, 1ML IVPush ONE (17:30)
[2017-03-02] MEDS ORDERED: METOCLOPRAMIDE 5 MG/ML, 2ML IVPush ONE (17:30)
[2017-03-02] MEDS ORDERED: morphine SULFATE 10 MG/ML, 1ML IVPush ONE (17:30)
[2017-03-02] MEDS ORDERED: DIPHENHYDRAMINE 50 MG/ML, 1ML ONE (17:39)
[2017-03-02] MEDS ORDERED: METOCLOPRAMIDE 5 MG/ML, 2ML ONE (17:39)
[2017-03-02] MEDS ORDERED: MORPHINE SULFATE 4 MG/ML, 1ML ONE (17:39)
[2017-03-02] MEDS ORDERED: HYDROmorphone 2 MG/ML, 1ML IVPush PRN (18:30)
[2017-03-02] MEDS ORDERED: HYDROmorphone 1 MG/ML, 1ML ONE (18:30)
[2017-03-02] MEDS ORDERED: KETOROLAC 30 MG/1 ML ONE (19:46)
[2017-03-02 19:56] VITALS: BP 137/87
[2017-03-02] MEDS ORDERED: KETOROLAC 30 MG/1 ML IVPush ONE (20:00)
== END 2017-03-02 19:58 | disposition home or self-care (01) ==
LOC: ED 18:28
DX: R11.2 Nausea with vomiting, unspecified (principal); R10.13 Epigastric pain; G89.29 Other chronic pain; J44.9 Chronic obstructive pulmonary disease, unspecified; I51.9 Heart disease, unspecified; I25.2 Old myocardial infarction; E11.9 Type 2 diabetes mellitus without complications; K21.9 Gastro-esophageal reflux disease without esophagitis; Z88.6 Allergy status to analgesic agent
CPT/HCPCS: 36415; 74000; 80053; 83605; 83690; 85025; 93005; 96361; 96374; 96375; 99285; J1170; J1200; J1885; J2270; J2765; J7030; Q0162

== ENCOUNTER 2017-06-07 13:06 | Emergency (ER) | payer MEDICAID ==
[~2017-06-07] VITALS: Ht 167.6 cm; Wt 58.2 kg
[~2017-06-07 13:06] MED LIST changes: -SUCR1ORA2 PO; +SUCR1ORA5 PO
[2017-06-07] MEDS ORDERED: SODIUM CHLORIDE 0.9% 1,000ML IVBOLUS ONE (13:30)
[2017-06-07] MEDS ORDERED: MORPHINE SULFATE 4 MG/ML, 1ML IVPush PRN (13:30)
[2017-06-07] MEDS ORDERED: MECLIZINE CHEWABLE 25 MG TAB PO ONE (13:30)
[2017-06-07] MEDS ORDERED: ONDANSETRON 2MG/ML, 2ML IVPush ONE (13:30)
[2017-06-07] MEDS ORDERED: SODIUM CHLORIDE FLUSH 10ML SYR IVF ONE (13:30)
[2017-06-07] MEDS ORDERED: MECLIZINE CHEWABLE 25 MG TAB ONE (13:45)
[2017-06-07] MEDS ORDERED: MORPHINE SULFATE 4 MG/ML, 1ML ONE (13:45)
[2017-06-07] MEDS ORDERED: ONDANSETRON 2MG/ML, 2ML ONE (13:45)
[2017-06-07 14:08] LABS: BLOOD UREA NITROGEN 35 mg/dL (7-18)
[2017-06-07] MEDS ORDERED: DIAZEPAM 5 MG TABLET ONE (14:14)
[2017-06-07] MEDS ORDERED: DIAZEPAM 5 MG TABLET PO ONE (14:30)
[2017-06-07 14:53] LABS: HEMATOCRIT 35.9 % (34.6-47.8); HEMOGLOBIN 11.4 g/dL (11.7-16.4); WHITE BLOOD COUNT 6.3 x10^3/uL (3.4-10)
[2017-06-07 14:54] LABS: DIFF TOTAL CELLS COUNTED 100 CELL DIFF
[2017-06-07 14:55] LABS: VERIFY COUNTS? YES
[2017-06-07 14:56] LABS: ANISOCYTOSIS 1+
[2017-06-07 14:57] LABS: OVALOCYTES 1+; POIKILOCYTOSIS 1+
[2017-06-07 14:58] LABS: MICROCYTOSIS 1+; TARGET CELLS 1+
[2017-06-07 14:59] LABS: LARGE PLATELETS 1+
[2017-06-07 17:00] VITALS: BP 110/67
== END 2017-06-07 17:04 | disposition home or self-care (01) ==
LOC: ED 15:02
DX: H81.13 Benign paroxysmal vertigo, bilateral (principal); J44.9 Chronic obstructive pulmonary disease, unspecified; E11.9 Type 2 diabetes mellitus without complications; K21.9 Gastro-esophageal reflux disease without esophagitis; I25.2 Old myocardial infarction
CPT/HCPCS: 36415; 70450; 80048; 82040; 85025; 93005; 96361; 96374; 96375; 99285; J2405; J7030

== ENCOUNTER 2017-08-03 12:29 | Inpatient (IN) | payer MEDICAID ==
[~2017-08-03] VITALS: Ht 167.6 cm; Wt 67.5 kg
[2017-08-03] MEDS ORDERED: NITROGLYCERIN SINGLE TAB 0.4 MG SL ONE (12:54)
[2017-08-03] MEDS ORDERED: ASPIRIN 81 MG TABLET CHEW ONE (12:54)
[2017-08-03] MEDS ORDERED: ACETAMINOPHEN 325 MG TABLET ONE (12:54)
[2017-08-03] MEDS: NITROGLYCERIN SINGLE TAB 0.4 MG SL PRN ×2 (12:57→13:08)
[2017-08-03] MEDS ORDERED: SODIUM CHLORIDE FLUSH 10ML SYR IVF ONE (13:00)
[2017-08-03] MEDS ORDERED: ASPIRIN 81 MG TABLET CHEW PO ONE (13:00)
[2017-08-03] MEDS ORDERED: ACETAMINOPHEN 325 MG TABLET PO ONE (13:00)
[2017-08-03] MEDS ORDERED: morphine SULFATE 10 MG/ML, 1ML ONE ×2 (13:18→14:19)
[2017-08-03] MEDS ORDERED: ONDANSETRON 2MG/ML, 2ML ONE (13:20)
[2017-08-03 13:22] LABS: HEMATOCRIT 37.5 % (34.6-47.8); HEMOGLOBIN 12.1 g/dL (11.7-16.4); WHITE BLOOD COUNT 8.6 x10^3/uL (3.4-10)
[2017-08-03 13:30] LABS: ASPARTATE AMINO TRANSFERASE 11 U/L (15-37); BLOOD UREA NITROGEN 24 mg/dL (7-18)
[2017-08-03 13:39] LABS: ANISOCYTOSIS 2+; MICROCYTOSIS 2+
[2017-08-03 13:40] LABS: HYPOCHROMIA 1+; OVALOCYTES 2+; TARGET CELLS 1+
[2017-08-03] MEDS: MORPHINE SULFATE 4 MG/ML, 1ML IVPush PRN ×2 (13:40→14:23)
[2017-08-03 13:41] LABS: SCHISTOCYTES 1+
[2017-08-03] MEDS ORDERED: ONDANSETRON 2MG/ML, 2ML IVPush ONE (14:00)
[2017-08-03] MEDS ORDERED: NS + 20MEQ KCL 1,000 ML IV SCH (15:12)
[2017-08-03] MEDS ORDERED: SODIUM CHLORIDE FLUSH 10ML SYR IVF PRN (15:30)
[2017-08-03] MEDS ORDERED: ONDANSETRON 2MG/ML, 2ML IVPush PRN (15:30)
[2017-08-03] MEDS ORDERED: TEMPLATE NON-FORMULARY MED. (Metformin Hcl** (Metformin Hcl Er**) 500 MG) PO PRN (15:30)
[2017-08-03] MEDS ORDERED: morphine SULFATE 10 MG/ML, 1ML IVPush PRN (15:30)
[2017-08-03] MEDS ORDERED: LABETALOL 5MG/ML, 20ML IVPush PRN (15:30)
[2017-08-03] MEDS ORDERED: ENOXAPARIN 40 MG/0.4 ML SQ SCH (15:30)
[2017-08-03] MEDS ORDERED: NITROGLYCERIN 0.4 MG BOTTLE (25 TABS) SL PRN (15:30)
[2017-08-03] MEDS ORDERED: ACETAMINOPHEN 325 MG TABLET PO PRN (15:30)
[2017-08-03 16:30] VITALS: BP 79/53
[2017-08-03 16:32] VITALS: BP 75/45
[2017-08-03] MEDS ORDERED: SODIUM CHLORIDE 0.9%, 500ML IVBOLUS ONE (17:00)
[2017-08-03 17:20] VITALS: BP 94/55
[2017-08-03] MEDS: KETOROLAC 30 MG/1 ML IVPush PRN (17:22)
[2017-08-03 18:42] VITALS: BP 91/51
[2017-08-03 19:10] LABS: IS PT STATUS REG ER OR PRE ER? NO
[2017-08-04 00:47] LABS: IS PT STATUS REG ER OR PRE ER? NO
[2017-08-04 01:16] VITALS: BP 99/64
[2017-08-04] MEDS: KETOROLAC 30 MG/1 ML IVPush PRN (02:59)
[2017-08-04 05:20] LABS: HEMATOCRIT 33.1 % (34.6-47.8); HEMOGLOBIN 10.5 g/dL (11.7-16.4); WHITE BLOOD COUNT 8.2 x10^3/uL (3.4-10)
[2017-08-04 05:22] LABS: BLOOD UREA NITROGEN 34 mg/dL (7-18)
[2017-08-04] MEDS ORDERED: ASPIRIN 325 MG TABLET EC PO SCH (06:00)
[2017-08-04 08:05] VITALS: BP 130/73
[2017-08-04] MEDS ORDERED: REGADENOSON 0.4 MG/5 ML SYRINGE ONE (08:11)
[2017-08-04] MEDS ORDERED: FLUOXETINE 20 MG CAPSULE PO SCH (09:00)
[2017-08-04] MEDS ORDERED: DIPHENHYDRAMINE 50 MG/ML, 1ML ONE (10:26)
[2017-08-04] MEDS ORDERED: KETOROLAC 30 MG/1 ML IVPush ONE (10:30)
[2017-08-04] MEDS ORDERED: SODIUM CHLORIDE 0.9% 1,000ML IVBOLUS ONE (10:30)
[2017-08-04] MEDS ORDERED: DIPHENHYDRAMINE 50 MG/ML, 1ML IVPush ONE (10:30)
[2017-08-04] MEDS ORDERED: BUTALB/APAP/CAFFEINE 50MG/325MG/40MG PO ONE (12:00)
[2017-08-04 13:22] VITALS: BP 121/77
== END 2017-08-04 14:58 | disposition home or self-care (01) | DRG 313 ==
LOC: ED 14:49 → EDIP 15:24 → 5SO 16:19 → DCLOUNGE 08-04 14:45
PROVIDERS: ADMIT Hospitalist; ATTEND Family Medicine
DX: R07.89 Other chest pain (principal); I25.2 Old myocardial infarction; D75.89 Other specified diseases of blood and blood-forming organs; E11.9 Type 2 diabetes mellitus without complications; J44.9 Chronic obstructive pulmonary disease, unspecified; G44.40 Drug-induced headache, not elsewhere classified, not intractable; R79.89 Other specified abnormal findings of blood chemistry; T46.3X5A Adverse effect of coronary vasodilators, initial encounter; Z66 Do not resuscitate; K21.9 Gastro-esophageal reflux disease without esophagitis; Z90.710 Acquired absence of both cervix and uterus; Z87.891 Personal history of nicotine dependence; Z79.84 Long term (current) use of oral hypoglycemic drugs; Z87.01 Personal history of pneumonia (recurrent)
CPT/HCPCS: 36415; 70450; 71010; 78452; 80048; 80053; 80061; 83605; 83880; 84484; 85025; 85610; 85730; 93005; 93017; 96374; 96375; 96376; J1650; J1885; J2405; J2785; J3480; A9502; C9898; J1200; J7030; J7040

== ENCOUNTER 2017-09-05 16:25 | Inpatient (IN) | payer MEDICARE, MEDICAID ==
[~2017-09-05] VITALS: Ht 162.6 cm; Wt 68.1 kg
[~2017-09-05 16:25] MED LIST changes: +ETOMIDATE 20 MG/10 ML ONE; +PROPOFOL 10 MG/ML, 100ML IV ONE; +SUCCINYLCHOLINE 20 MG/ML, 10ML ONE
[2017-09-05] MEDS ORDERED: SODIUM CHLORIDE FLUSH 10ML SYR IVF ONE (17:00)
[2017-09-05] MEDS ORDERED: PLEASE ENTER HEIGHT AND WEIGHT MC SCH (17:00)
[2017-09-05 17:01] LABS: ABG COLLECTION SITE RIGHT RADIAL; HEMATOCRIT 38.7 % (34.6-47.8); HEMOGLOBIN 12.5 g/dL (11.7-16.4); WHITE BLOOD COUNT 30.9 x10^3/uL (3.4-10)
[2017-09-05 17:02] LABS: COLLATERAL CIRCULATION TESTING NORMAL
[2017-09-05 17:11] LABS: ASPARTATE AMINO TRANSFERASE 63 U/L (15-37); BLOOD UREA NITROGEN 38 mg/dL (7-18)
[2017-09-05 17:21] LABS: DIFF TOTAL CELLS COUNTED 100 CELL DIFF; IS PT STATUS REG ER OR PRE ER? YES
[2017-09-05 17:26] LABS: ANISOCYTOSIS 2+; VERIFY COUNTS? YES
[2017-09-05 17:27] LABS: HYPOCHROMIA 1+; POLYCHROMASIA 1+; SCHISTOCYTES 1+; TARGET CELLS 1+
[2017-09-05 17:28] LABS: LARGE PLATELETS 1+
[2017-09-05] MEDS ORDERED: SUCCINYLCHOLINE 20 MG/ML, 10ML IVPush ONE (17:30)
[2017-09-05] MEDS ORDERED: NOREPINEPHRINE 4 MG in SODIUM CHLORIDE 0.9% 246 ML IV PRN ×2 (17:30→19:22)
[2017-09-05] MEDS ORDERED: CEFTRIAXONE PMX 1GM/50ML 50 ML IVPB ONE (17:30)
[2017-09-05] MEDS ORDERED: ETOMIDATE 40 MG/20 ML IVPush ONE (17:30)
[2017-09-05] MEDS ORDERED: PROPOFOL 100 ML IV PRN (17:30)
[2017-09-05 18:01] LABS: ABG COLLECTION SITE LEFT RADIAL; COLLATERAL CIRCULATION TESTING NORMAL
[2017-09-05 18:09] LABS: DAU SCREEN DISCLAIMER
[2017-09-05] MEDS ORDERED: SODIUM CHLORIDE 0.9% 1,000 ML IV ONE (18:35)
[2017-09-05] MEDS ORDERED: SODIUM CHLORIDE FLUSH 10ML SYR IVF PRN (19:00)
[2017-09-05] MEDS ORDERED: ACETAMINOPHEN 650 MG/20.3 ML UDC NG PRN (19:30)
[2017-09-05] MEDS: ALBUTEROL/IPRATROPIUM 2.5MG/0.5MG, 3 ML INLINE SCH ×2 (19:30→22:30)
[2017-09-05] MEDS ORDERED: LIDOCAINE-MPF 1%, 2ML ENDO PRN (19:30)
[2017-09-05] MEDS ORDERED: PHARMACY MAY ADJ FOR RENAL FX MC SCH (19:30)
[2017-09-05] MEDS ORDERED: FAMOTIDINE 20 MG TABLET PO SCH (21:00)
[2017-09-05] MEDS: HEPARIN 5,000 UNITS/ML, 1ML SQ SCH (21:30)
[2017-09-05] MEDS: methylPREDNISolone SOD SUCC 40 MG/ML IV SCH (21:30)
[2017-09-05] MEDS: FAMOTIDINE 20 MG/2 ML IVPush SCH (21:54)
[2017-09-05] MEDS: NOREPINEPHRINE 4 MG in SODIUM CHLORIDE 0.9% 246 ML IV PRN (21:54)
[2017-09-06] MEDS: ALBUTEROL/IPRATROPIUM 2.5MG/0.5MG, 3 ML INLINE SCH ×6 (02:39→21:54)
[2017-09-06] MEDS: SODIUM CHLORIDE 0.9% 1,000 ML IV SCH ×3 (02:58→18:21)
[2017-09-06] MEDS: methylPREDNISolone SOD SUCC 40 MG/ML IV SCH ×4 (03:02→22:21)
[2017-09-06 04:20] VITALS: BP 114/55
[2017-09-06] MEDS: NOREPINEPHRINE 4 MG in SODIUM CHLORIDE 0.9% 246 ML IV PRN (04:35)
[2017-09-06 04:48] LABS: ABG COLLECTION SITE RIGHT RADIAL; COLLATERAL CIRCULATION TESTING NORMAL
[2017-09-06 05:06] LABS: HEMATOCRIT 32.6 % (34.6-47.8); HEMOGLOBIN 10.6 g/dL (11.7-16.4); WHITE BLOOD COUNT 17.9 x10^3/uL (3.4-10)
[2017-09-06 05:10] LABS: BLOOD UREA NITROGEN 34 mg/dL (7-18)
[2017-09-06] MEDS: HEPARIN 5,000 UNITS/ML, 1ML SQ SCH ×3 (05:26→22:22)
[2017-09-06] MEDS: FAMOTIDINE 20 MG/2 ML IVPush SCH ×2 (09:02→22:21)
[2017-09-06] MEDS ORDERED: morphine SULFATE 10 MG/ML, 1ML ONE (10:23)
[2017-09-06] MEDS: morphine SULFATE 10 MG/ML, 1ML IVPush PRN ×2 (10:27→18:54)
[2017-09-06] MEDS: PIPERACILLIN/TAZO/PMX 3.375GM 50 ML IV SCH ×2 (11:43→18:14)
[2017-09-06] MEDS ORDERED: OMNIPAQUE 350 MG/ML, 100ML BOTTLE ONE (15:31)
[2017-09-06] MEDS: PROPOFOL 100 ML IV PRN (19:58)
[2017-09-07] MEDS: PIPERACILLIN/TAZO/PMX 3.375GM 50 ML IV SCH ×4 (00:36→19:31)
[2017-09-07] MEDS: PROPOFOL 100 ML IV PRN (02:02)
[2017-09-07] MEDS: ALBUTEROL/IPRATROPIUM 2.5MG/0.5MG, 3 ML INLINE SCH ×3 (02:11→10:00)
[2017-09-07] MEDS: SODIUM CHLORIDE 0.9% 1,000 ML IV SCH ×3 (03:09→19:59)
[2017-09-07] MEDS: methylPREDNISolone SOD SUCC 40 MG/ML IV SCH ×2 (03:10→09:04)
[2017-09-07 04:04] VITALS: BP 130/74
[2017-09-07 04:32] LABS: WHITE BLOOD COUNT 10.7 x10^3/uL (3.4-10)
[2017-09-07 04:33] LABS: ABG COLLECTION SITE RIGHT RADIAL; COLLATERAL CIRCULATION TESTING NORMAL
[2017-09-07 04:44] LABS: BLOOD UREA NITROGEN 19 mg/dL (7-18)
[2017-09-07 04:47] LABS: ASPARTATE AMINO TRANSFERASE 19 U/L (15-37)
[2017-09-07] MEDS: HEPARIN 5,000 UNITS/ML, 1ML SQ SCH ×3 (05:40→21:32)
[2017-09-07] MEDS: morphine SULFATE 10 MG/ML, 1ML IVPush PRN ×2 (09:04→11:28)
[2017-09-07] MEDS: FAMOTIDINE 20 MG/2 ML IVPush SCH ×2 (09:04→21:32)
[2017-09-07 10:10] LABS: IS PT STATUS REG ER OR PRE ER? NO
[2017-09-07] MEDS ORDERED: ALBUTEROL/IPRATROPIUM 2.5MG/0.5MG, 3 ML NPPB PRN (11:00)
[2017-09-07 14:38] LABS: ABG COLLECTION SITE LEFT BRACHIAL
[2017-09-07] MEDS: ALBUTEROL/IPRATROPIUM 2.5MG/0.5MG, 3 ML NPPB SCH ×3 (15:09→22:49)
[2017-09-07] MEDS ORDERED: FUROSEMIDE 40 MG/4 ML ONE (16:20)
[2017-09-07] MEDS ORDERED: FUROSEMIDE 40 MG/4 ML IV ONE (16:30)
[2017-09-07] MEDS: OXYcodone IR 5MG TABLET PO PRN (19:48)
[2017-09-08] MEDS: PIPERACILLIN/TAZO/PMX 3.375GM 50 ML IV SCH ×4 (00:02→18:10)
[2017-09-08] MEDS: ALBUTEROL/IPRATROPIUM 2.5MG/0.5MG, 3 ML NPPB SCH ×6 (03:03→22:00)
[2017-09-08] MEDS: OXYcodone IR 5MG TABLET PO PRN ×2 (04:29→20:58)
[2017-09-08 05:10] LABS: HEMATOCRIT 27.8 % (34.6-47.8); HEMOGLOBIN 9.1 g/dL (11.7-16.4)
[2017-09-08 05:29] VITALS: BP 139/80
[2017-09-08 05:35] LABS: BLOOD UREA NITROGEN 15 mg/dL (7-18)
[2017-09-08] MEDS: HEPARIN 5,000 UNITS/ML, 1ML SQ SCH ×3 (06:24→21:00)
[2017-09-08] MEDS ORDERED: POTASSIUM CHLORIDE 40 MEQ in SODIUM CHLORIDE 0.9% 500 ML IV ONE (06:30)
[2017-09-08] MEDS ORDERED: POTASSIUM CHLORIDE 40 MEQ in SODIUM CHLORIDE 0.9% 100 ML IV ONE ×2 (07:30→16:00)
[2017-09-08] MEDS: FAMOTIDINE 20 MG/2 ML IVPush SCH ×2 (09:29→21:00)
[2017-09-08] MEDS ORDERED: morphine SULFATE 10 MG/ML, 1ML IVPush PRN (09:30)
[2017-09-08] MEDS: KETOROLAC 30 MG/1 ML IVPush PRN ×2 (14:22→22:39)
[2017-09-08] MEDS: SODIUM CHLORIDE 0.9% 1,000 ML IV SCH (14:56)
[2017-09-08] MEDS ORDERED: POTASSIUM CHLORIDE 20 MEQ PACKET PO ONE (16:00)
[2017-09-08] MEDS: ASA/APAP/ CAFFEINE TABLET PO PRN (18:09)
[2017-09-09] MEDS: PIPERACILLIN/TAZO/PMX 3.375GM 50 ML IV SCH ×4 (00:09→17:44)
[2017-09-09] MEDS: ALBUTEROL/IPRATROPIUM 2.5MG/0.5MG, 3 ML NPPB SCH ×5 (01:58→18:46)
[2017-09-09] MEDS: ASA/APAP/ CAFFEINE TABLET PO PRN ×3 (02:20→17:45)
[2017-09-09] MEDS: OXYcodone IR 5MG TABLET PO PRN ×4 (04:25→22:05)
[2017-09-09 04:26] LABS: ABG COLLECTION SITE RIGHT RADIAL; COLLATERAL CIRCULATION TESTING NORMAL
[2017-09-09 05:12] LABS: BLOOD UREA NITROGEN 12 mg/dL (7-18)
[2017-09-09 05:16] LABS: ASPARTATE AMINO TRANSFERASE 35 U/L (15-37)
[2017-09-09 05:19] VITALS: BP 155/89
[2017-09-09 05:24] LABS: HEMATOCRIT 28.9 % (34.6-47.8); HEMOGLOBIN 9.4 g/dL (11.7-16.4); WHITE BLOOD COUNT 7.5 x10^3/uL (3.4-10)
[2017-09-09 06:04] LABS: ANISOCYTOSIS 1+; HYPOCHROMIA 1+
[2017-09-09 06:05] LABS: MICROCYTOSIS 1+; OVALOCYTES 1+; POLYCHROMASIA 1+; SCHISTOCYTES 1+; TARGET CELLS 1+
[2017-09-09 06:06] LABS: LARGE PLATELETS 1+
[2017-09-09] MEDS: HEPARIN 5,000 UNITS/ML, 1ML SQ SCH ×3 (06:26→22:05)
[2017-09-09] MEDS: FAMOTIDINE 20 MG/2 ML IVPush SCH ×2 (10:02→22:06)
[2017-09-09] MEDS: KETOROLAC 30 MG/1 ML IVPush PRN (10:03)
[2017-09-09] MEDS ORDERED: POTASSIUM CHLORIDE 20 MEQ TAB.ER.PRT PO ONE ×2 (10:30→14:00)
[2017-09-09] MEDS ORDERED: FUROSEMIDE 20 MG/2 ML IV ONE (14:00)
[2017-09-09] MEDS: FUROSEMIDE 40 MG/4 ML IV SCH (17:00)
[2017-09-10] MEDS: PIPERACILLIN/TAZO/PMX 3.375GM 50 ML IV SCH ×2 (00:14→05:17)
[2017-09-10] MEDS: OXYcodone IR 5MG TABLET PO PRN ×4 (02:11→20:15)
[2017-09-10 04:13] VITALS: BP 140/76
[2017-09-10 04:30] LABS: ABG COLLECTION SITE LEFT BRACHIAL
[2017-09-10 04:36] LABS: BLOOD UREA NITROGEN 7 mg/dL (7-18)
[2017-09-10 04:38] LABS: HEMATOCRIT 29.5 % (34.6-47.8); HEMOGLOBIN 9.5 g/dL (11.7-16.4); WHITE BLOOD COUNT 8.4 x10^3/uL (3.4-10)
[2017-09-10] MEDS: HEPARIN 5,000 UNITS/ML, 1ML SQ SCH ×3 (05:17→21:41)
[2017-09-10 05:57] LABS: DIFF TOTAL CELLS COUNTED 100 CELL DIFF
[2017-09-10 05:59] LABS: ANISOCYTOSIS 1+; HYPOCHROMIA 1+; LARGE PLATELETS 1+; MICROCYTOSIS 1+; OVALOCYTES 1+; POLYCHROMASIA 1+; SCHISTOCYTES 1+; TARGET CELLS 1+; VERIFY COUNTS? YES
[2017-09-10] MEDS: ALBUTEROL/IPRATROPIUM 2.5MG/0.5MG, 3 ML NPPB SCH ×4 (07:25→20:22)
[2017-09-10] MEDS: FUROSEMIDE 40 MG/4 ML IV SCH ×2 (07:50→17:30)
[2017-09-10] MEDS: FAMOTIDINE 20 MG/2 ML IVPush SCH ×2 (07:51→21:40)
[2017-09-10] MEDS: POTASSIUM CHLORIDE 20 MEQ PACKET PO SCH ×3 (09:40→17:30)
[2017-09-10] MEDS: ASA/APAP/ CAFFEINE TABLET PO PRN (12:16)
[2017-09-10] MEDS: PIPERACILLIN/TAZO 3.375 GM in SODIUM CHLORIDE 0.9% 50 ML IV SCH ×2 (12:16→17:30)
[2017-09-10] MEDS ORDERED: MAGNESIUM SULFATE PMX 4GM/100M 100 ML IV ONE (19:00)
[2017-09-10] MEDS ORDERED: POTASSIUM CHLORIDE 20 MEQ TAB.ER.PRT PO ONE (19:00)
[2017-09-10] MEDS ORDERED: NICOTINE 21 MG/24 HR PATCH.TD24 TD SCH (20:30)
[2017-09-11] MEDS: PIPERACILLIN/TAZO 3.375 GM in SODIUM CHLORIDE 0.9% 50 ML IV SCH ×2 (00:28→05:47)
[2017-09-11] MEDS: OXYcodone IR 5MG TABLET PO PRN ×3 (02:43→11:56)
[2017-09-11 03:26] LABS: ABG COLLECTION SITE RIGHT RADIAL; COLLATERAL CIRCULATION TESTING NORMAL
[2017-09-11 05:24] LABS: BLOOD UREA NITROGEN 8 mg/dL (7-18); HEMATOCRIT 30.3 % (34.6-47.8); HEMOGLOBIN 9.7 g/dL (11.7-16.4); WHITE BLOOD COUNT 7.9 x10^3/uL (3.4-10)
[2017-09-11] MEDS: HEPARIN 5,000 UNITS/ML, 1ML SQ SCH (05:47)
[2017-09-11] MEDS: ALBUTEROL/IPRATROPIUM 2.5MG/0.5MG, 3 ML NPPB SCH ×2 (07:05→11:55)
[2017-09-11 07:24] LABS: ANISOCYTOSIS 1+; HYPOCHROMIA 1+; MICROCYTOSIS 1+
[2017-09-11 07:25] LABS: OVALOCYTES 1+; POIKILOCYTOSIS 1+; TARGET CELLS 1+
[2017-09-11] MEDS: FAMOTIDINE 20 MG/2 ML IVPush SCH (07:35)
[2017-09-11] MEDS: FUROSEMIDE 40 MG/4 ML IV SCH (07:38)
[2017-09-11] MEDS: ASA/APAP/ CAFFEINE TABLET PO PRN ×2 (07:54→11:56)
[2017-09-11] MEDS ORDERED: OMNIPAQUE 350 MG/ML, 100ML BOTTLE ONE (11:16)
[2017-09-11] MEDS ORDERED: TRAZ50TA18 PO (12:05)
[2017-09-11] MEDS ORDERED: NICO-487 TD (12:05)
[2017-09-11] MEDS ORDERED: AMOX1TAB64 PO (12:08)
== END 2017-09-11 11:45 | disposition home or self-care (01) | DRG 871 ==
LOC: ED 18:30 → EDIP 18:35 → CCU 20:37
PROVIDERS: ADMIT Hospitalist; ATTEND Hospitalist
PROC: 0BH17EZ Insertion of Endotracheal Airway into Trachea, Via Natural or Artificial Opening (ICD-10-PCS; principal; 2017-09-05)
PROC: 5A1945Z Respiratory Ventilation, 24-96 Consecutive Hours (ICD-10-PCS; 2017-09-05)
PROC: 0T9B70Z Drainage of Bladder with Drainage Device, Via Natural or Artificial Opening (ICD-10-PCS; 2017-09-05)
PROC: 02HV33Z Insertion of Infusion Device into Superior Vena Cava, Percutaneous Approach (ICD-10-PCS; 2017-09-05)
PROC: B548ZZA Ultrasonography of Superior Vena Cava, Guidance (ICD-10-PCS; 2017-09-05)
PROC: 5A09457 Assistance with Respiratory Ventilation, 24-96 Consecutive Hours, Continuous Positive Airway Pressure (ICD-10-PCS; 2017-09-07)
DX: A41.9 Sepsis, unspecified organism (principal); J96.01 Acute respiratory failure with hypoxia; J81.0 Acute pulmonary edema; R65.21 Severe sepsis with septic shock; G93.40 Encephalopathy, unspecified; Z99.11 Dependence on respirator [ventilator] status; K83.1 Obstruction of bile duct; K83.0 Cholangitis; J44.1 Chronic obstructive pulmonary disease with (acute) exacerbation; D68.9 Coagulation defect, unspecified; E11.9 Type 2 diabetes mellitus without complications; G89.29 Other chronic pain; I25.10 Atherosclerotic heart disease of native coronary artery without angina pectoris; Z78.1 Physical restraint status; I25.2 Old myocardial infarction; B96.20 Unspecified Escherichia coli [E. coli] as the cause of diseases classified elsewhere; K21.9 Gastro-esophageal reflux disease without esophagitis; K44.9 Diaphragmatic hernia without obstruction or gangrene; K76.0 Fatty (change of) liver, not elsewhere classified; Z87.01 Personal history of pneumonia (recurrent); Z79.4 Long term (current) use of insulin; Z87.891 Personal history of nicotine dependence; Z90.710 Acquired absence of both cervix and uterus; Z90.89 Acquired absence of other organs; Z99.81 Dependence on supplemental oxygen; Z88.8 Allergy status to other drugs, medicaments and biological substances; Z79.899 Other long term (current) drug therapy
CPT/HCPCS: 36415; 36600; 71010; 71275; 74177; 74181; 80048; 80053; 80076; 80307; 81001; 82803; 82805; 83605; 83735; 84132; 84145; 84478; 84484; 85025; 85610; 85730; 87040; 87070; 87077; 87081; 87186; 87205; 93005; 94002; 94003; 94640; 94660; J0696; J1644; J1885; J1940; J2543; J2704; J3480; J7620; Q9967; G0479; J0330; J2270; J2920; J3475; J7030; J7050; S0028

== ENCOUNTER 2018-02-07 15:19 | Observation (INO) | payer MEDICARE ==
[~2018-02-07] VITALS: Ht 167.6 cm; Wt 72.7 kg
[~2018-02-07 15:19] MED LIST changes: +AMOX1TAB64 PO; -ETOMIDATE 20 MG/10 ML ONE; +NICO-487 TD; -PROPOFOL 10 MG/ML, 100ML IV ONE; -SUCCINYLCHOLINE 20 MG/ML, 10ML ONE; +TRAZ50TA18 PO
[2018-02-07] MEDS ORDERED: SODIUM CHLORIDE FLUSH 10ML SYR IVF ONE (15:30)
[2018-02-07] MEDS ORDERED: FAMOTIDINE 20 MG/2 ML IVP ONE (15:30)
[2018-02-07] MEDS ORDERED: METOCLOPRAMIDE 5 MG/ML, 2ML IVPush ONE (15:30)
[2018-02-07] MEDS ORDERED: FAMOTIDINE 20 MG/2 ML ONE (15:48)
[2018-02-07] MEDS ORDERED: METOCLOPRAMIDE 5 MG/ML, 2ML ONE (15:48)
[2018-02-07] MEDS ORDERED: MORPHINE SULFATE 4 MG/ML, 1ML ONE ×3 (15:48→19:40)
[2018-02-07] MEDS ORDERED: ASPIRIN 81 MG TABLET CHEW PO ONE (16:00)
[2018-02-07] MEDS: MORPHINE SULFATE 4 MG/ML, 1ML IVPush PRN ×4 (16:21→20:11)
[2018-02-07 16:30] LABS: MEAN CORPUSCULAR HEMOGLOBIN 25.1 pg (27.0-34.8); MEAN CORPUSCULAR HGB CONC 32.4 g/dL (32.4-35.8); MEAN CORPUSCULAR VOLUME 77.4 fL (80-100); MEAN PLATELET VOLUME 8.6 fL (7.4-10.4); PLATELET COUNT 399 x10^3/uL (130-400); RED BLOOD COUNT 4.68 x10^6/uL (3.82-5.3); RED CELL DISTRIBUTION WIDTH 25.6 % (9.6-15.2)
[2018-02-07 16:51] LABS: ALANINE AMINOTRANSFERASE 16 U/L (12-78); ALBUMIN 3.3 g/dL (3.4-5.0); ANION GAP 7 mmol/L (5-15); CALCIUM 9.7 mg/dL (8.5-10.1); CHLORIDE 103 mmol/L (98-107); CREATININE 0.71 mg/dL (0.55-1.02)
[2018-02-07 16:53] LABS: ALKALINE PHOSPHATASE 83 U/L (45-117); BILIRUBIN,TOTAL 0.2 mg/dL (0.2-1.0); TOTAL PROTEIN 6.9 g/dL (6.4-8.2)
[2018-02-07 16:57] LABS: BASOPHILS # (AUTO) 0.04 x10^3/uL (0-0.1); BASOPHILS % (AUTO) 1 % (0-1); EOSINOPHILS # (AUTO) 0.62 x10^3/uL (0-0.4); EOSINOPHILS % (AUTO) 9 % (1-7); LYMPHOCYTES # (AUTO) 1.94 x10^3/uL (1-3.4); LYMPHOCYTES % (AUTO) 28 % (22-44); MD MORPH REVIEW ONLY; MONOCYTES # (AUTO) 0.77 x10^3/uL (0.2-0.8); MONOCYTES % (AUTO) 11 % (2-9); NEUTROPHILS # (AUTO) 3.53 x10^3/uL (1.8-6.8); NEUTROPHILS % (AUTO) 51 % (42-75)
[2018-02-07 16:58] LABS: ANISOCYTOSIS 1+; HYPOCHROMIA 1+; MICROCYTOSIS 1+; OVALOCYTES 1+; POLYCHROMASIA 1+; TARGET CELLS 1+; TROPONIN I 0.021 ng/mL (0.000-0.045)
[2018-02-07] MEDS ORDERED: MAALOX/HYOSCYAMINE/LIDOCAINE 45 ML BTL ONE (16:58)
[2018-02-07 16:59] LABS: <PLATELET ESTIMATE> ADEQUATE; LARGE PLATELETS 1+
[2018-02-07] MEDS ORDERED: MAALOX/HYOSCYAMINE/LIDOCAINE 45 ML BTL PO ONE (17:00)
[2018-02-07] MEDS ORDERED: PROMETHAZINE 25 MG/ML, 1ML ONE ×2 (17:12→20:23)
[2018-02-07 17:15] LABS: MICROSCOPIC NOT IND
[2018-02-07 17:23] LABS: CULTURE INDICATED? NO
[2018-02-07] MEDS ORDERED: PROMETHAZINE 25 MG/ML, 1ML IM ONE ×2 (17:30→20:30)
[2018-02-07 17:49] LABS: PROTHROMBIN TIME 10.4 Seconds (9.6-11.5)
[2018-02-07] MEDS ORDERED: OMNIPAQUE 350 MG/ML, 100ML BOTTLE ONE (18:24)
[2018-02-07] MEDS ORDERED: ONDANSETRON ODT 4 MG PO ONE (19:00)
[2018-02-07] MEDS ORDERED: ONDANSETRON ODT 4 MG ONE (19:39)
[2018-02-07 20:32] VITALS: BP 145/95
[2018-02-07] MEDS ORDERED: D5%-0.45% NACL 1,000 ML IV SCH (20:56)
[2018-02-07] MEDS ORDERED: NICOTINE 7 MG/24 HR PATCH.TD24 TD SCH (21:00)
[2018-02-07] MEDS ORDERED: ONDANSETRON ODT 4 MG PO PRN (21:00)
[2018-02-07] MEDS: HEPARIN 5,000 UNITS/ML, 1ML SQ SCH (21:00)
[2018-02-07 22:02] LABS: TROPONIN I 0.027 ng/mL (0.000-0.045)
[2018-02-07] MEDS ORDERED: FUROSEMIDE 40 MG/4 ML IV ONE (22:30)
[2018-02-07] MEDS ORDERED: MORPHINE SULFATE 4 MG/ML, 1ML IVPush PRN (23:30)
[2018-02-07] MEDS: OXYcodone/APAP 5/325MG TABLET PO PRN (23:55)
[2018-02-08 00:44] VITALS: BP 114/77
[2018-02-08] MEDS: PROMETHAZINE 25 MG/ML, 1ML IM PRN ×2 (00:46→04:50)
[2018-02-08 03:33] LABS: MEAN CORPUSCULAR HEMOGLOBIN 25.3 pg (27.0-34.8); MEAN CORPUSCULAR HGB CONC 32.1 g/dL (32.4-35.8); MEAN CORPUSCULAR VOLUME 78.9 fL (80-100); MEAN PLATELET VOLUME 9.1 fL (7.4-10.4); PLATELET COUNT 349 x10^3/uL (130-400); RED BLOOD COUNT 4.73 x10^6/uL (3.82-5.3); RED CELL DISTRIBUTION WIDTH 25.1 % (9.6-15.2)
[2018-02-08 03:39] LABS: ANION GAP 8 mmol/L (5-15); CALCIUM 9.2 mg/dL (8.5-10.1); CHLORIDE 102 mmol/L (98-107)
[2018-02-08 03:40] LABS: CREATININE 0.76 mg/dL (0.55-1.02)
[2018-02-08 03:42] LABS: TROPONIN I 0.031 ng/mL (0.000-0.045)
[2018-02-08 03:59] LABS: BASOPHILS # (AUTO) 0.08 x10^3/uL (0-0.1); BASOPHILS % (AUTO) 1 % (0-1); EOSINOPHILS # (AUTO) 0.65 x10^3/uL (0-0.4); EOSINOPHILS % (AUTO) 11 % (1-7); LYMPHOCYTES # (AUTO) 1.71 x10^3/uL (1-3.4); LYMPHOCYTES % (AUTO) 29 % (22-44); MD SCAN; MONOCYTES # (AUTO) 0.69 x10^3/uL (0.2-0.8); MONOCYTES % (AUTO) 12 % (2-9); NEUTROPHILS # (AUTO) 2.88 x10^3/uL (1.8-6.8); NEUTROPHILS % (AUTO) 48 % (42-75)
[2018-02-08] MEDS: HEPARIN 5,000 UNITS/ML, 1ML SQ SCH (04:51)
[2018-02-08] MEDS: OXYcodone/APAP 5/325MG TABLET PO PRN (06:29)
[2018-02-08 07:06] VITALS: BP 118/78
[2018-02-08] MEDS ORDERED: OMEPRAZOLE 20 MG CAPSULE.DR PO SCH (07:30)
[2018-02-08] MEDS ORDERED: OXYcodone/APAP 5/325MG TABLET PO PRN ×2 (08:00)
[2018-02-08] MEDS ORDERED: KETOROLAC 30 MG/1 ML IV ONE (08:30)
[2018-02-08] MEDS ORDERED: FLUOXETINE HCL 20 MG CAPSULE PO SCH (09:00)
[2018-02-08 09:18] LABS: TROPONIN I 0.018 ng/mL (0.000-0.045)
[2018-02-08] MEDS ORDERED: ACETAMINOPHEN 325 MG TABLET PO SCH (12:00)
[2018-02-08] MEDS ORDERED: OMEP-110 PO (12:11)
[2018-02-08] MEDS ORDERED: POLY17PO5 PO (12:11)
[2018-02-08] MEDS ORDERED: PROP20TA PO (12:11)
== END 2018-02-08 13:21 | disposition home or self-care (01) ==
LOC: ED 17:54 → EDIP 19:02 → INTOOBSV 19:02 → 4EST 20:34
PROVIDERS: ADMIT Family Medicine; ATTEND Family Medicine
DX: R10.13 Epigastric pain (principal); R09.02 Hypoxemia; R11.0 Nausea
CPT/HCPCS: 36415; 71045; 74177; 76700; 80048; 80053; 81003; 83690; 83880; 84484; 85025; 85610; 93005; 93306; 96361; 96372; 96374; 96375; 96376; 99285; G0378; J1644; J1885; J1940; J2550; J2765; Q0162; Q9967; S0028

== ENCOUNTER 2018-03-21 11:34 | Emergency (ER) | payer MEDICARE ==
[~2018-03-21] VITALS: Ht 167.6 cm; Wt 67.0 kg
[~2018-03-21 11:34] MED LIST changes: +OMEP-110 PO; +POLY17PO5 PO; +PROP20TA PO
[2018-03-21 11:37] VITALS: BP 164/75
[2018-03-21 12:18] LABS: MEAN CORPUSCULAR HEMOGLOBIN 26.5 pg (27.0-34.8); MEAN CORPUSCULAR HGB CONC 32.8 g/dL (32.4-35.8); MEAN CORPUSCULAR VOLUME 80.9 fL (80-100); MEAN PLATELET VOLUME 8.6 fL (7.4-10.4); PLATELET COUNT 416 x10^3/uL (130-400); RED CELL DISTRIBUTION WIDTH 24.9 % (9.6-15.2)
[2018-03-21 12:27] LABS: CHLORIDE 103 mmol/L (98-107)
[2018-03-21 12:34] LABS: ALANINE AMINOTRANSFERASE 17 U/L (12-78); ALBUMIN 3.9 g/dL (3.4-5.0); ALKALINE PHOSPHATASE 90 U/L (45-117); ANION GAP 11 mmol/L (5-15); BILIRUBIN,TOTAL 0.4 mg/dL (0.2-1.0); CALCIUM 9.8 mg/dL (8.5-10.1); CREATININE 0.79 mg/dL (0.55-1.02)
[2018-03-21 13:06] LABS: BASOPHILS # (AUTO) 0.09 x10^3/uL (0-0.1); BASOPHILS % (AUTO) 1 % (0-1); EOSINOPHILS # (AUTO) 0.37 x10^3/uL (0-0.4); EOSINOPHILS % (AUTO) 4 % (1-7); LYMPHOCYTES # (AUTO) 1.95 x10^3/uL (1-3.4); LYMPHOCYTES % (AUTO) 19 % (22-44); MD SCAN; MONOCYTES # (AUTO) 0.39 x10^3/uL (0.2-0.8); MONOCYTES % (AUTO) 4 % (2-9); NEUTROPHILS # (AUTO) 7.35 x10^3/uL (1.8-6.8); NEUTROPHILS % (AUTO) 72 % (42-75)
[2018-03-21 14:21] LABS: MICROSCOPIC NOT IND
[2018-03-21 14:22] LABS: CULTURE INDICATED? NO
[2018-03-21] MEDS ORDERED: OXYC15TA PO (14:34)
[2018-03-21] MEDS ORDERED: ONDANSETRON ODT 4 MG ONE (14:40)
[2018-03-21] MEDS ORDERED: MAALOX/HYOSCYAMINE/LIDOCAINE 45 ML BTL ONE (14:41)
[2018-03-21] MEDS ORDERED: MAALOX/HYOSCYAMINE/LIDOCAINE 45 ML BTL PO ONE (15:00)
[2018-03-21] MEDS ORDERED: ONDANSETRON ODT 4 MG PO ONE (15:00)
== END 2018-03-21 15:36 | disposition home or self-care (01) ==
LOC: ED 15:00
DX: R10.11 Right upper quadrant pain (principal); R11.2 Nausea with vomiting, unspecified; I10 Essential (primary) hypertension; J44.9 Chronic obstructive pulmonary disease, unspecified; I25.2 Old myocardial infarction; E11.9 Type 2 diabetes mellitus without complications; K21.9 Gastro-esophageal reflux disease without esophagitis
CPT/HCPCS: 36415; 76700; 80053; 81003; 83690; 85025; 93005; 99285; Q0162